=== PATIENT | male | born 1935 | race Caucasian/White ===

== ENCOUNTER 2019-05-20 14:40 | Emergency (ER) | payer SELFPAY ==
[~2019-05-20] VITALS: Ht 172.7 cm; Wt 90.7 kg
== END 2019-05-20 16:13 | disposition home or self-care (01) ==
LOC: ED 14:40
DX: M79.672 Pain in left foot (principal); Z53.21 Procedure and treatment not carried out due to patient leaving prior to being seen by health care provider

== ENCOUNTER 2019-09-24 08:44 | Emergency (ER) | payer MEDICARE, OTHER ==
[~2019-09-24] VITALS: Ht 172.7 cm; Wt 90.7 kg
[2019-09-24] MEDS ORDERED: WARFARIN SODIUM5 MG PO (09:00)
[2019-09-24] MEDS ORDERED: LEVOTHYROXINE100 MCG PO (09:00)
[2019-09-24] MEDS ORDERED: METOPROLOL TART50 MG PO (09:00)
[2019-09-24] MEDS ORDERED: LISINOPRIL10 MG PO (09:01)
[2019-09-24] MEDS ORDERED: POTASSIUM CHLO20 ME1 PO (09:01)
[2019-09-24] MEDS ORDERED: FUROSEMIDE20 MG PO (09:01)
[2019-09-24] MEDS ORDERED: ROSUVASTATIN CA20 MG PO (09:01)
[2019-09-24] MEDS ORDERED: TAMIFLU75 MG PO (11:15)
== END 2019-09-24 11:40 | disposition home or self-care (01) ==
LOC: ED 08:44
DX: J10.1 Influenza due to other identified influenza virus with other respiratory manifestations (principal); I10 Essential (primary) hypertension; Z87.891 Personal history of nicotine dependence; Z79.899 Other long term (current) drug therapy; Z79.01 Long term (current) use of anticoagulants
CPT/HCPCS: 71046; 80053; 85025; 85610; 87502; 94640; 99283-25; A9270

== ENCOUNTER 2020-12-21 16:08 | Emergency (ER) | payer MEDICARE, OTHER ==
[~2020-12-21] VITALS: Ht 172.7 cm; Wt 90.7 kg
[~2020-12-21 16:08] MED LIST: FUROSEMIDE20 MG PO; LEVOTHYROXINE100 MCG PO; LISINOPRIL10 MG PO; METOPROLOL TART50 MG PO; POTASSIUM CHLO20 ME1 PO; ROSUVASTATIN CA20 MG PO; TAMIFLU75 MG PO; WARFARIN SODIUM5 MG PO
--- OUTSIDE RECORDS SUMMARY | 2020-12-21 16:14 | XMS ---
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 EAmy VISIT COUNT (12 MO.) 1 JO-ANN [facility] TOTAL 1 NOTE: Visits indicate total known visits. ED/UCC VISIT TRACKING (12 MO.) 12/21/2020 16:08 [facility] [place] TYPE: Emergency COMPLAINT: - SHORTNESS OF BREATH INPATIENT VISIT TRACKING (12 MO.) No inpatient visits to display in this time frame [id number]
[2020-12-21] MEDS ORDERED: LASIX20 MG PO (19:16)
--- NOTE | 2020-12-22 17:14 | EKG ---
[facility] [address] [facility] [place], [place] [address] Signed Ventricular-paced rhythm Abnormal ECG No previous ECGs available Confirmed by RICHIE DING MD ([id number]) on 12/22/2020 5:14:18 PM Electronically Signed By: RICHIE DING MD 12/22/20 1714 PATIENT NAME: BETTYRICKEYFRANCISCO J JIMENEZ Electrocardiogram DATE OF : 37 PHYSICIAN: RICHIE DING MD REPORT #: [id number] REPORT IS CONFIDENTIAL AND NOT TO BE RELEASED WITHOUT AUTHORIZATION
== END 2020-12-21 19:23 | disposition home or self-care (01) ==
LOC: ED 16:08
DX: I11.0 Hypertensive heart disease with heart failure (principal); I50.9 Heart failure, unspecified; Z20.822 Contact with and (suspected) exposure to COVID-19; Z87.891 Personal history of nicotine dependence; Z79.899 Other long term (current) drug therapy; Z79.01 Long term (current) use of anticoagulants
CPT/HCPCS: 71045; 80053; 83880; 84484; 85025; 85379; 93005; 93010; 96374; 99285-25; C9803; J1940; U0003

== ENCOUNTER 2021-08-03 09:43 | Emergency (ER) | payer MEDICARE, OTHER ==
[~2021-08-03] VITALS: Ht 172.7 cm; Wt 90.7 kg
[~2021-08-03 09:43] MED LIST changes: +LASIX20 MG PO
--- OUTSIDE RECORDS SUMMARY | 2021-08-03 09:50 | XMS ---
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 EAmy VISIT COUNT (12 MO.) 2 JO-ANN [facility] TOTAL 2 NOTE: Visits indicate total known visits. ED/UCC VISIT TRACKING (12 MO.) 08/03/2021 09:44 [facility] [place] TYPE: Emergency COMPLAINT: - DIZZY, UNBALANCED 12/21/2020 16:08 [facility] [place] TYPE: Emergency COMPLAINT: - SHORTNESS OF BREATH DIAGNOSES: - Personal history of nicotine dependence - Heart failure, unspecified - Shortness of breath - Hypertensive heart disease with heart failure - USP (current) use of anticoagulants - Other senior living (current) drug therapy INPATIENT VISIT TRACKING (12 MO.) No inpatient visits to display in this time frame [id number]
[2021-08-03] MEDS ORDERED: TRANSDERM-SCOP1 EACH TD (10:11)
--- NOTE | 2021-08-04 20:36 | EKG ---
[facility] [address] [facility] [place] [address] Signed Ventricular-paced rhythm with occasional premature ventricular complexes Abnormal ECG When compared with ECG of 21-DEC-2020 16:16, premature ventricular complexes are now present Vent. rate has increased BY 3 BPM Confirmed by ELIZABETH MISTRY DO ([id number]) on 08/04/2021 8:36:39 PM Electronically Signed By: ELIZABETH MISTRY DO 08/04/212035 PATIENT NAME: LEEROY HERNÁNDEZFRANCISCO J JIMENEZ Electrocardiogram DATE OF : 37 PHYSICIAN: ELIZABETH MISTRY DO REPORT #: [id number] REPORT IS CONFIDENTIAL AND NOT TO BE RELEASED WITHOUT AUTHORIZATION
== END 2021-08-03 12:17 | disposition home or self-care (01) ==
LOC: ED 09:43
DX: R42 Dizziness and giddiness (principal); I10 Essential (primary) hypertension; Z87.891 Personal history of nicotine dependence; Z79.899 Other long term (current) drug therapy; Z79.01 Long term (current) use of anticoagulants
CPT/HCPCS: 70450; 80053; 85025; 85610; 93005; 93010; 99284-25

== ENCOUNTER 2021-11-23 15:53 | Emergency (ER) | payer MEDICARE, OTHER ==
[~2021-11-23] VITALS: Ht 172.7 cm; Wt 90.7 kg
[~2021-11-23 15:53] MED LIST changes: +TRANSDERM-SCOP1 EACH TD
--- OUTSIDE RECORDS SUMMARY | 2021-11-23 16:00 | XMS ---
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 Elenita VISIT COUNT (12 MO.) 3 JO-ANN [facility] TOTAL 3 NOTE: Visits indicate total known visits. 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
[2021-11-23] MEDS ORDERED: FENOFIBRATE160 MG PO (16:19)
[2021-11-23] MEDS ORDERED: FLONASE ALLERG9.9 ML NAS (18:38)
--- NOTE | 2021-11-24 07:15 | EKG ---
[facility] [address] [facility] [place] [address] Signed Atrial fibrillation with premature ventricular or aberrantly conducted complexes Nonspecific intraventricular block Lateral infarct , age undetermined Abnormal ECG When compared with ECG of 03-AUG-2021 10:27, Atrial fibrillation with Electronic ventricular pacemaker Confirmed by HORTENSIA LOWE MD ([id number]) on 11/24/2021 7:14:48 AM Electronically Signed By: HORTENSIA LOWE MD 11/24/21 0715 PATIENT NAME: RICKEY HERNÁNDEZ BARBARA Electrocardiogram DATE OF : 37 PHYSICIAN: HORTENSIA LOWE MD REPORT #: [id number] REPORT IS CONFIDENTIAL AND NOT TO BE RELEASED WITHOUT AUTHORIZATION
== END 2021-11-23 18:56 | disposition home or self-care (01) ==
LOC: ED 15:53
DX: J30.2 Other seasonal allergic rhinitis (principal); I10 Essential (primary) hypertension; Z87.891 Personal history of nicotine dependence; Z79.899 Other long term (current) drug therapy; Z79.01 Long term (current) use of anticoagulants
CPT/HCPCS: 36415; 71045; 80053; 83735; 84484; 85025; 93005; 93010; 99285-25